=== PATIENT | male | born 1980 | race Caucasian/White ===

== ENCOUNTER 2016-05-28 22:24 | Emergency (ER) | payer OTHER ==
[~2016-05-28] VITALS: Ht 175.3 cm; Wt 84.5 kg
[2016-05-28 22:26] VITALS: TEMP 98.6
[2016-05-28] MEDS ORDERED: FLOMAX 0.40.4 MG/CAP PO (22:48)
[2016-05-28 23:10] LABS: PH 5 (5-8); SQUAMOUS EPITHELIAL None Seen /hpf; URINE APPEARANCE Clear; URINE BACTERIA None Seen /hpf; URINE BILIRUBIN Negative (NEGATIVE); URINE BLOOD 3+ (NEGATIVE); URINE COLOR Straw; URINE GLUCOSE Negative (NEGATIVE); URINE KETONE 1+ (NEGATIVE); URINE RBC 0-2 /hpf; URINE UROBILINOGEN Negative (NEGATIVE); URINE WBC 0-2 /hpf
[2016-05-28] MEDS ORDERED: NORCO 325 MG-51 TAB PO (23:57)
[2016-05-29 00:09] VITALS: BP 147/87; PULSE 64
[2016-05-29 01:34] LABS: CHLAMYDIA/TRACH by PCR Male Not Detected; Neisseria Gon by PCR Male Not Detected
== END 2016-05-29 00:09 | disposition home or self-care (01) ==
LOC: COL.ER 22:24
PROVIDERS: Nurse Practitioner
DX: N20.1 Calculus of ureter (principal)
CPT/HCPCS: J2270; J2405; J7030